=== PATIENT | female | born 1950 | race Caucasian/White ===

== ENCOUNTER 2017-06-27 11:15 | Outpatient (RCR) | payer OTHER ==
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
[~2017-06-27 11:15] MED LIST: ACET-2043 PO; CALC600T63 PO; DIPH-740 PO; FISH1CAP15 PO; IBUP-56 PO; LEVO88TA45 PO; OXYC-865 PO; RIS150PT PO; TRIA1CAP85 PO
--- NOTE | 2017-06-27 16:13 | PT PLAN OF CARE ---
Physician: Trini Lal APRN Patient is being seen: 1x/week Therapist: Sukhdeep Macdonald, PT, DPT Medical Diagnosis: Midback pain R>L Treatment Diagnosis: Same Date of Onset: 11/05/16 Date of Initial Evaluation: 05/30/17 Date patient was last seen: 06/27/17 Number of treatments: 6 Number of cancellations/No shows: 0 INTERVENTIONS: Strengthening/condition Ice/Heat Range of Motion Spinal Stabilization Stretching Electrical Stim Posture/Body mechanics Home Exercise Program GOALS: 4 weeks: Arely does light housework without thoracic pain. 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 MET PATIENT'S GOAL: Improve trunk strength and posture to be able to stand more than one hour, lift heavy items and shop without thoracic pain. Improving Status of Patient's Goals: Progressed well; met 2/3 goals Patient Compliance: Excellent Prognosis: Excellent Reasons for discontinuing therapy: This is a discharge note for Arely Pena. She reports that she is doing well. She states that she made the following improvements: able to stand for 3 hours without pain. She does report 1/10 centralized thoracic pain that will continue to improve with repeated extension exercise. She is independent on her HEP. She improved her Oswestry disability index from 40% impairment to 10% impairment. She demonstrated full AROM of thoracic extension, flexion, R/L rotation with normalized end feels. As a result , she will be discharged from formal PT to [facility]. ROM: Spinal AROM thoracic flexion, extension, R/L rotation: WNL with normal end feels. Strength: Core strength 4/5. R LE 4/5, L 4/5. Palpation: Painful with palpation T 6 spinous processes Mobility: Independent, sit<>stand without UE use. If you have any questions, please contact me at [phone]. Thank you, Sukhdeep Macdonald, PT, DPT [facility]
== END 2017-08-28 ==
LOC: PT 11:15
PROVIDERS: ATTEND Nurse Practitioner Family
DX: M54.6 Pain in thoracic spine (principal)
CPT/HCPCS: 97162

== ENCOUNTER → 2017-09-12 | Outpatient (CLI) | payer OTHER ==
--- NOTE | 2017-09-12 13:29 | RADIOLOGY IMAGING REPORT ---
FACILITY: [facility] PATIENT NAME: Arely Pena : 1950 MR: [id number] V: [id number] EXAM DATE: ORDERING PHYSICIAN: ANYA PADRON TECHNOLOGIST: Location: [facility] [place] Patient: Arely Pena : 1950 Visit/Account:[id number] Date of Sevice: 09/12/2017 DEXA Scan Clinical history: Osteoporosis. Comparison: DEXA scan from 04/26/2016. LUMBAR SPINE: The bone mineral density (BMD) measured from L1-L4 correlates with a Z-score of -0.8 and a T-score of -2.5 which is osteoporosis as defined by the World Health Organization. The corresponding risk of f racture in the lumbar spine is 6 times increased compared with a young adult reference population. T his value has decrease by 2.9 % since the prior study. More than 5% change is considered significant . HIP: Bone mineral density (BMD) measured in the LEFT total hip region correlates with a Z-score by 0.4 and a T-score of -1.9 which is osteopenia as defined by the World Health Organization. The correspondin g risk of fracture in the hip is 3-4 times increased compared to a young adult reference population. This value has decrease by one % since the prior study. More than 5% change is considered significan t. T score left femoral neck -2.1 Bone mineral density (BMD) measured in the Femoral Neck region measures 0.741 g/cm?. IMPRESSION: 1. Lumbar spine: Osteoporosis. There has been 2.9% decrease in the bone mineral density since the p revious exam. 2. Left Total Hip: Osteopenia. There has been 1% decrease in the bone mineral density since the pre vious exam. 3. Femoral Neck: Bone Mineral Density is 0.741 g/cm? The next DEXA scan of this patient should include the following sites: L1-L4 and the left hip. FRAX? WHO Fracture Risk Assessment Tool link: <http://www.shef.ac.uk/FRAX/tool.jsp?locationValue=9> PLEASE NOTE: 1) The World Health Organization defines low BMD as follows: T-score Normal > -1 Osteopenia < -1 and > -2.5 Osteoporosis < -2.5 without fractures Established osteoporosis < -2.5 with fractures 2) In general, you may wish to consider: Diagnosis Treatment Follow-up DEXA Normal BMD Prevention 2-3 years Osteopenia Prevention/therapy 1-2 years Osteoporosis Therapy Yearly 3) Fracture risk estimated from the T-score is more accurate for vertebral fractures (often spontane ous) than for hip fractures. Report Dictated By: Jia Winter MD at 09/12/2017 1:22 PM Report E-Signed By: Jia Winter MD at 09/12/2017 1:24 PM WSN:[email or web address]
--- NOTE | 2017-09-13 12:24 | RADIOLOGY IMAGING REPORT ---
FACILITY: [facility] [place] PATIENT NAME: STEPHENIE SIBLEY : [id number] MR: [id number] V: [id number] EXAM DATE: ORDERING PHYSICIAN: ANYA PADRON TECHNOLOGIST: Prachi Mancera PROCEDURE:BILATERAL DIGITAL SCREENING MAMMOGRAM WITH CAD ASSISTED INTERPRETATION AND 3D BREAST TOMOSYNTHESIS. COMPARISON:Prior mammograms dated 04/26/16, 04/07/15, 03/24/14, 02/28/12 and 12/02/10 INDICATIONS:SCREENING FINDINGS: A small amount of fibroglandular tissue is seen throughout the breasts. The parenchymal pattern has remained stable when allowing for difference in mammographic technique and patient positioning. There is no evidence of malignant appearing mass, malignant appearing calcification or other secondary sign of malignancy in either breast. DIAGNOSTIC CATEGORY 1--NEGATIVE. RECOMMENDATIONS: ROUTINE MAMMOGRAM AND CLINICAL EVALUATION. IMPRESSION: Bi-RADS 1: No significant abnormality is seen. Images were reviewed with R2CAD and 3D breast tomosynthesis. Dictated by: Jia Winter M.D. on 09/12/2017 at 16:12 Transcribed by: MUNIRA on 09/12/2017 at 20:45 Approved by: Jia Winter M.D. on 09/13/2017 at 12:23 [facility]
== END ==
LOC: MAMO 01:37
PROVIDERS: ATTEND Nurse Practitioner Family
DX: Z13.820 Encounter for screening for osteoporosis (principal); Z12.31 Encounter for screening mammogram for malignant neoplasm of breast; M85.80 Other specified disorders of bone density and structure, unspecified site; M85.88 Other specified disorders of bone density and structure, other site; M81.8 Other osteoporosis without current pathological fracture
CPT/HCPCS: 77063; 77067; 77080

== ENCOUNTER → 2018-06-30 | Outpatient (CLI) | payer OTHER ==
--- NOTE | 2018-06-30 13:48 | RADIOLOGY IMAGING REPORT ---
FACILITY: [facility] [place] PATIENT NAME: Arely Pena : 1950 MR: [id number] V: [id number] EXAM DATE: ORDERING PHYSICIAN: JAMEE FULLER TECHNOLOGIST: Location: [facility] Patient: Arely Pena : 1950 Visit/Account:[id number] Date of Sevice: 06/30/2018 EXAMINATION: CT Pelvis W/O Contrast HISTORY: Superior ramus fracture noted on x-ray TECHNIQUE: Spiral scan was through the pelvis without intravenous contrast. One of the following dos e optimization techniques was utilized in the performance of this exam: Automated exposure control; a djustment of the mA and/or kV according to the patient's size; or use of an iterative reconstruction technique. Specific details can be referenced in the facility's radiology CT exam operational polic y. COMPARISON STUDIES: None. FINDINGS: Pelvic structures: Bladder is distended. Patient status post hysterectomy. Bowel / peritoneum / mesenteries: Visualized aspects are unremarkable. There is no evidence of bowel obstruction. No inflammatory changes. No free fluid or free air. Vessels: Negative Musculoskeletal / Body wall: There is a nondisplaced fracture through the left superior pubic ramus extending to the symphysis. Left inferior pubic ramus is intact. Right superior and inferior pubic ra mi are intact. Acetabula the and hips are unremarkable. There is no sacral fracture identified. Coccy x unremarkable. Degenerative changes are present in the visualized lumbar spine. No significant hematoma noted around the fracture site. Lymph node assessment: Negative IMPRESSION: 1. Nondisplaced left superior pubic ramus fracture. No other fracture is identified. There is no sig nificant hematoma. 2. Results were called to JAMEE FULLER at 06/30/2018 1:29 PM. Report Dictated By: Dianne Avelar MD at 06/30/2018 1:29 PM Report E-Signed By: Dianne Avelar MD at 06/30/2018 1:45 PM WSN:[email or web address]
== END ==
LOC: CT 11:00
PROVIDERS: ATTEND Physician Assistant
DX: S32.512A Fracture of superior rim of left pubis, initial encounter for closed fracture (principal)
CPT/HCPCS: 72192

== ENCOUNTER → 2018-08-10 | Outpatient (CLI) | payer OTHER ==
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
== END ==
LOC: RAD 10:31
PROVIDERS: ATTEND Nurse Practitioner Family
DX: S32.501D Unspecified fracture of right pubis, subsequent encounter for fracture with routine healing (principal)

== ENCOUNTER → 2018-09-21 | Outpatient (CLI) | payer OTHER ==
--- NOTE | 2018-09-21 10:36 | RADIOLOGY IMAGING REPORT ---
FACILITY: [facility] PATIENT NAME: Arely Pena : 1950 MR: [id number] V: [id number] EXAM DATE: ORDERING PHYSICIAN: CAMACHO CALDWELL TECHNOLOGIST: Location: [facility] Patient: Arely Pena : 1950 Visit/Account:[id number] Date of Sevice: 09/21/2018 AP pelvis, one view, and left hip, one view. HISTORY: Left superior pubic ramus fracture. COMPARISON: 08/10/2018. A deformity is present in the left pubic bone and left superior pubic ramus consistent with a healing fracture. The fracture lines are slightly less distinct. Slight cortical and trabecular irregulari ties are present in the left ischium, unchanged. No widening of the pubic symphysis. Phleboliths ar e present in the true pelvis. Moderate joint space narrowing is present in both hips. The sacroilia c joints are unremarkable. Mild degenerative changes are present in the lower lumbar spine. IMPRESSION: Healing left superior pubic ramus fracture. Otherwise negative for acute bony abnormality. Report Dictated By: Jarett Leblanc MD at 09/21/2018 10:27 AM Report E-Signed By: Jarett Leblanc MD at 09/21/2018 10:31 AM WSN:[email or web address]
== END ==
LOC: RAD 09:59
PROVIDERS: ATTEND Nurse Practitioner Family
DX: S32.592A Other specified fracture of left pubis, initial encounter for closed fracture (principal)

== ENCOUNTER → 2018-10-26 | Outpatient (CLI) | payer OTHER ==
[~2018-10-26] MED LIST changes: +CHOL10005 PO
--- NOTE | 2018-10-26 11:54 | RADIOLOGY IMAGING REPORT ---
FACILITY: [facility] [place] PATIENT NAME: Arely Pena : 1950 MR: [id number] V: [id number] EXAM DATE: ORDERING PHYSICIAN: ANYA PADRON TECHNOLOGIST: Location: [facility] Patient: Arely Pena : 1950 Visit/Account:[id number] Date of Sevice: 10/26/2018 DEXA Scan Clinical history: Osteoporosis screening. Comparison: 09/12/2017. LUMBAR SPINE: Bone mineral density (BMD) measured in the lumbar spine correlates with a T-score of -2.2 and a Z-sco re of -0.5 which is osteopenia as defined by the World Health Organization. The corresponding risk o f fracture in the lumbar spine is increased compared with a young adult reference population. Lumbar spine bone density has increased by 4.3% compared to previous. Note that degenerative changes may f alsely increase bone density. LEFT FEMORAL NECK: Bone mineral density (BMD) measured in the femoral neck correlates with a T-score of -2.2 and a Z-sco re of -0.5 which is osteopenia as defined by the World Health Organization. Bone mineral density (BMD) measured in the femoral neck region is 0.739 g/cm2. LEFT TOTAL HIP: Total hip bone mineral density (BMD) correlates with a T-score of -2.2 and a Z-score of -0.7 which is osteopenia as defined by the World Health Organization. Total hip bone density has decreased by 4.9 % compared to previous. The corresponding risk of fracture in the hip is increased compared with a young adult reference pop[facility]. IMPRESSION: 1. Lumbar spine: Osteopenia. Lumbar spine bone density has increased by 4.3% compared to previous. 2. Left femoral neck: Osteopenia. 3. Left femoral neck: Bone Mineral Density is 0.739 g/cm2. 4. Left total hip: Osteopenia. Total hip bone density has decreased by 4.9% compared to previous. FRAX WHO Fracture Risk Assessment Tool link: <http://www.shef.ac.uk/FRAX/tool.jsp?locationValue=9> PLEASE NOTE: 1) The World Health Organization defines low BMD as follows: T-score Normal > -1 Osteopenia < -1 and > -2.5 Osteoporosis < -2.5 without fractures Established osteoporosis < -2.5 with fractures 2) In general, you may wish to consider: Diagnosis Treatment Follow-up DEXA Normal BMD Prevention 2-3 years Osteopenia Prevention/therapy 1-2 years Osteoporosis Therapy Yearly 3) Fracture risk estimated from the T-score is more accurate for vertebral fractures (often spontane ous) than for hip fractures. Report Dictated By: Jarett Leblanc MD at 10/26/2018 11:48 AM Report E-Signed By: Jarett Leblanc MD at 10/26/2018 11:50 AM WSN:[email or web address]
--- NOTE | 2018-10-30 12:51 | RADIOLOGY IMAGING REPORT ---
FACILITY: [facility] [place] PATIENT NAME: STEPHENIE SIBLEY : [id number] MR: [id number] V: [id number] EXAM DATE: ORDERING PHYSICIAN: ANYA PADRON TECHNOLOGIST: Prachi Mancera PROCEDURE:BILATERAL DIGITAL SCREENING MAMMOGRAM WITH CAD ASSISTED INTERPRETATION & 3D TOMOSYNTHESIS COMPARISON:[facility] INDICATIONS:Screening FINDINGS: Scattered fibroglandular densities are present in both breasts. No masses or suspicious calcifications. DIAGNOSTIC CATEGORY 1--NEGATIVE. RECOMMENDATIONS: ROUTINE MAMMOGRAM AND CLINICAL EVALUATION IN 1 YR. IMPRESSION: BIRADS 1: Negative. Dictated by: Jarett Leblanc M.D. on 10/26/2018 at 16:59 Transcribed by: PORTER on 10/29/2018 at 10:04 Approved by: Tan Robertson M.D. on 10/30/2018 at 12:50 [facility]
== END ==
LOC: MAMO 01:11
PROVIDERS: ATTEND Nurse Practitioner Family
DX: Z12.31 Encounter for screening mammogram for malignant neoplasm of breast (principal); M85.89 Other specified disorders of bone density and structure, multiple sites
CPT/HCPCS: 77063; 77067; 77080

== ENCOUNTER 2018-11-27 09:57 | Outpatient (RCR) | payer OTHER ==
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
--- NOTE | 2018-11-27 13:01 | PT PLAN OF CARE ---
Physician: Gretchen VILLEDAP Patient is being seen: 1x/1-2 weeks Therapist: Camryn Hill, PT Medical Diagnosis: Pelvic fracture Treatment Diagnosis: Same, altered gait and balance Date of Onset: 06/29/18 Date of Initial Evaluation: 09/25/18 Date patient was last seen: 11/27/18 Number of treatments: 6 Number of cancellations/No shows: 0 INTERVENTIONS: HEP focus for Strengthening, Stretching, Neuromuscular Re-ed, Gait Trg/Balance Trg GOALS: One month: Arely is a long distance community ambulator. met Two months: Arely demonstrates dynamic retro balance control. met Three months: L LE strength 5/5 for stair use with eccentric quad control, normal balance reactions on uneven surfaces. all met PATIENT'S GOAL: Strengthen L LE and normal balance while out in the community. both met Patient Compliance: Excellent Prognosis: Excellent Reasons for discontinuing therapy: S: Arely relates she's walking up to 2 miles, has steady balance while in the community. O: ROM: B hip PROM WNL except tightness L hip extension, 0 degrees. Strength: L quad improved to 72#, R 85#, L hamstrings 5-/5. Gait/Balance: Normal gait, normal quad eccentric control descending stairs without handrail. Gracia Balance Assessment 56/56. Normal balance control on uneven surfaces. Mobility: Independent. A/P: Arely Pena has regained balance, community ambulation and balance reactions. I'll DC PT to HEP. Thank you. CHANDNI
== END 2018-12-24 ==
LOC: PT 09:57
PROVIDERS: ATTEND Nurse Practitioner Family
DX: Z47.89 Encounter for other orthopedic aftercare (principal); Z87.81 Personal history of (healed) traumatic fracture; R26.89 Other abnormalities of gait and mobility; M62.81 Muscle weakness (generalized)
CPT/HCPCS: 97161

== ENCOUNTER 2018-12-07 00:06 | Day surgery (SDC) | payer OTHER ==
[~2018-12-07] VITALS: Ht 157.5 cm; Wt 63.0 kg
[2018-12-07] MEDS ORDERED: PROPOFOL EMUL(*) 10MG/ML 20 ML 40 ML ONE (07:46)
[2018-12-07] MEDS ORDERED: LIDOCAINE MPF 1% 5 ML VIAL ONE (07:46)
[2018-12-07 08:03] VITALS: BP 120/71
[2018-12-07] MEDS ORDERED: LIDOCAINE/SOD BICARB 8.4% SYR ID ONE (08:20)
[2018-12-07] MEDS ORDERED: NORMOSOL R SOLN(*) 1000 ML BAG 1,000 ML IV PRN (08:20)
[2018-12-07 09:27] VITALS: BP 90/52
--- NOTE | 2018-12-07 09:35 | Short(Outpt) Discharge Summary ---
Discharge Summary Reason for Hosp/Final Diag: (1) Encounter for screening colonoscopy Hospital Course & Plan: pt presented for colonoscopy. she tolerated the procedure well. she will be discharged home when criteria met. Departure Discharge to: Home Discharge Instructions Home Meds Reported Medications Cholecalciferol (Vitamin D3) (VITAMIN D3) Unknown Strength Tablet, PO, TAB 10/24/18 Fish Oil/Dha/Epa (FISH OIL 1,200 MG FISH OIL) 1 Each Capsule, 1 EACH PO DAILY, CAPSULE 09/30/14 Calcium Carbonate (CALCIUM) 600 Mg Tablet, 600 MG PO DAILY 09/30/14 Triamterene/Hydrochlorothiazid (TRIAMTERENE-HCTZ 37.5-25 MG CP) 1 Each Capsule, 1 TAB PO DAILY, CAPSULE 09/30/14 Levothyroxine Sodium (LEVOTHYROXINE SODIUM) 88 Mcg Tablet, 88 MCG PO QDAY 09/30/14 Diet: Regular Activity: As Tolerated Special Instructions: repeat colonoscopy in 10 yrs CAT HUYNH December 07, 2018 09:35
[2018-12-07 10:00] VITALS: BP 107/72
[2018-12-07 10:10] VITALS: BP 123/79
[2018-12-07 10:13] VITALS: BP 110/76
--- NOTE | 2018-12-07 14:21 | NUR ---
0927- PT. RECEIVED FROM OR VIA STRETCHER WITH THE SIDERAILS UP. SBAR RECEIVED FROM MELLO POWELL AND DR. BLISS. SEE ADMISSION ASSESSMENT 0939- PT. RETURNED TO ROOM AIR. 1000- PT. GIVEN JUICE 1023- IV TAKEN OUT AND PRESSURE DRESSING APPLIED. 1025- DISCHARGE INSTRUCTIONS GONE OVER WITH PT AND . 1030- ACCOMPANIED PT. OUT TO VEHICLE WITH PT AND .
== END 2018-12-07 10:30 | disposition home or self-care (01) ==
LOC: OR 00:06
PROVIDERS: ATTEND Surgery
DX: Z12.11 Encounter for screening for malignant neoplasm of colon (principal); K57.30 Diverticulosis of large intestine without perforation or abscess without bleeding; I95.9 Hypotension, unspecified; E03.9 Hypothyroidism, unspecified
CPT/HCPCS: 00812; 45378; J2001; J2704